=== PATIENT | male | born 1980 | race Caucasian/White ===

== ENCOUNTER 2016-12-08 05:55 | Emergency (ER) | payer MEDICAID ==
[~2016-12-08] VITALS: Ht 175.3 cm; Wt 66.0 kg
[2016-12-08] MEDS ORDERED: ONDANSETRON 2MG/ML, 2ML IVPush ONE (06:00)
[2016-12-08] MEDS ORDERED: THIAMINE 100 MG in SODIUM CHLORIDE 0.9% 50 ML IVPB ONE (06:00)
[2016-12-08] MEDS ORDERED: SODIUM CHLORIDE 0.9% 1,000ML IVBOLUS ONE (06:00)
[2016-12-08] MEDS ORDERED: ONDANSETRON 2MG/ML, 2ML ONE (06:22)
[2016-12-08] MEDS ORDERED: LORazepam 2 MG/ML, 1ML ONE ×2 (06:24→07:52)
[2016-12-08] MEDS: LORazepam 2 MG/ML, 1ML IVPush PRN ×2 (06:31→07:56)
[2016-12-08 06:38] LABS: HEMATOCRIT 49.6 % (39.2-51.8); HEMOGLOBIN 16.8 g/dL (13.7-18.0); WHITE BLOOD COUNT 10.7 x10^3/uL (3.4-10)
[2016-12-08 06:52] LABS: ASPARTATE AMINO TRANSFERASE 127 U/L (15-37); BLOOD UREA NITROGEN 11 mg/dL (7-18)
[2016-12-08 06:53] LABS: IS PT STATUS REG ER OR PRE ER? YES
[2016-12-08 09:18] VITALS: BP 101/57
== END 2016-12-08 09:20 | disposition home or self-care (01) ==
LOC: ED 07:12
DX: F10.239 Alcohol dependence with withdrawal, unspecified (principal); R45.4 Irritability and anger; R45.1 Restlessness and agitation; G40.909 Epilepsy, unspecified, not intractable, without status epilepticus
CPT/HCPCS: 36415; 71010; 76700; 80053; 80307; 83690; 84484; 85025; 93005; 96365; 96366; 96375; 96376; 99285; J2060; J2405; J3411; J7030

== ENCOUNTER 2017-05-07 11:48 | Emergency (ER) | payer MEDICAID ==
[~2017-05-07] VITALS: Ht 172.7 cm; Wt 65.0 kg
[2017-05-07 11:48] VITALS: BP 140/72
[2017-05-07] MEDS ORDERED: LORazepam 2 MG/ML, 1ML ONE (12:15)
[2017-05-07] MEDS ORDERED: MAGNESIUM SULFATE 1 GM, THIAMINE 100 MG, FOLIC ACID 1 MG, MVI ADULT 10 ML in SODIUM CHL... IV ONE (12:30)
[2017-05-07] MEDS ORDERED: LORazepam 2 MG/ML, 1ML IVPush PRN (12:30)
[2017-05-07] MEDS ORDERED: SODIUM CHLORIDE FLUSH 10ML SYR IVF ONE (12:30)
[2017-05-07 12:56] LABS: BASOPHILS # (AUTO) 0.04 x10^3/uL (0-0.1); BASOPHILS % (AUTO) 0 % (0-1); EOSINOPHILS % (AUTO) 0 % (1-7); LYMPHOCYTES # (AUTO) 1.08 x10^3/uL (1-3.4); LYMPHOCYTES % (AUTO) 9 % (22-44); MD NO; MEAN CORPUSCULAR HEMOGLOBIN 32.3 pg (27.5-34.5); MEAN CORPUSCULAR HGB CONC 34.1 g/dL (33.2-36.2); MEAN CORPUSCULAR VOLUME 94.6 fL (81-97); MEAN PLATELET VOLUME 7.6 fL (7.4-10.4); MONOCYTES # (AUTO) 0.39 x10^3/uL (0.2-0.8); MONOCYTES % (AUTO) 3 % (2-9); NEUTROPHILS # (AUTO) 10.53 x10^3/uL (1.8-6.8); NEUTROPHILS % (AUTO) 87 % (42-75); PLATELET COUNT 182 x10^3/uL (130-400); RED CELL DISTRIBUTION WIDTH 13.9 % (9.4-14.8)
[2017-05-07 13:04] LABS: ALANINE AMINOTRANSFERASE 54 U/L (12-78); ALBUMIN 3.5 g/dL (3.4-5.0); ANION GAP 16 mmol/L (5-15); CALCIUM 8.4 mg/dL (8.5-10.1); CHLORIDE 104 mmol/L (98-107); CREATININE 0.84 mg/dL (0.7-1.3)
[2017-05-07 13:07] LABS: ALKALINE PHOSPHATASE 88 U/L (45-117); TOTAL PROTEIN 6.9 g/dL (6.4-8.2)
== END 2017-05-07 15:26 | disposition home or self-care (01) ==
LOC: ED 15:15
DX: F10.239 Alcohol dependence with withdrawal, unspecified (principal); R44.3 Hallucinations, unspecified; G40.909 Epilepsy, unspecified, not intractable, without status epilepticus; Z79.899 Other long term (current) drug therapy
CPT/HCPCS: 36415; 71101; 80053; 80307; 83690; 85025; 96365; 96375; 99285; J2060; J3411; J3475; J7030; G0479

== ENCOUNTER 2018-01-10 20:35 | Emergency (ER) | payer SELFPAY ==
[~2018-01-10] VITALS: Ht 160 cm; Wt 61.1 kg
[2018-01-10] MEDS ORDERED: SODIUM CHLORIDE 0.9% 1,000ML IVBOLUS ONE (21:30)
[2018-01-10] MEDS ORDERED: METOCLOPRAMIDE 5 MG/ML, 2ML IVPush ONE (21:30)
[2018-01-10] MEDS ORDERED: LORazepam 2 MG/ML, 1ML IVPush ONE (21:30)
[2018-01-10] MEDS ORDERED: LORazepam 2 MG/ML, 1ML ONE (21:33)
[2018-01-10] MEDS ORDERED: METOCLOPRAMIDE 5 MG/ML, 2ML ONE (21:33)
[2018-01-10 21:48] LABS: BASOPHILS # (AUTO) 0.08 x10^3/uL (0-0.1); BASOPHILS % (AUTO) 2 % (0-1); EOSINOPHILS # (AUTO) 0.14 x10^3/uL (0-0.4); EOSINOPHILS % (AUTO) 3 % (1-7); LYMPHOCYTES # (AUTO) 1.84 x10^3/uL (1-3.4); LYMPHOCYTES % (AUTO) 37 % (22-44); MD NO; MEAN CORPUSCULAR HEMOGLOBIN 33.3 pg (27.5-34.5); MEAN CORPUSCULAR HGB CONC 33.5 g/dL (33.2-36.2); MEAN CORPUSCULAR VOLUME 99.2 fL (81-97); MEAN PLATELET VOLUME 7.6 fL (7.4-10.4); MONOCYTES # (AUTO) 0.53 x10^3/uL (0.2-0.8); MONOCYTES % (AUTO) 11 % (2-9); NEUTROPHILS # (AUTO) 2.35 x10^3/uL (1.8-6.8); NEUTROPHILS % (AUTO) 48 % (42-75); PLATELET COUNT 161 x10^3/uL (130-400); RED CELL DISTRIBUTION WIDTH 14.5 % (9.4-14.8)
[2018-01-10 21:56] LABS: ALBUMIN 4.4 g/dL (3.4-5.0); ANION GAP 7 mmol/L (5-15); CALCIUM 8.8 mg/dL (8.5-10.1); CHLORIDE 109 mmol/L (98-107)
[2018-01-10 21:59] LABS: ALANINE AMINOTRANSFERASE 84 U/L (12-78); ALKALINE PHOSPHATASE 112 U/L (45-117); BILIRUBIN,TOTAL 0.7 mg/dL (0.2-1.0); CREATININE 0.78 mg/dL (0.7-1.3); TOTAL PROTEIN 8.3 g/dL (6.4-8.2)
[2018-01-10 22:52] VITALS: BP 110/67
== END 2018-01-10 23:23 | disposition home or self-care (01) ==
LOC: ED 21:57
DX: F10.120 Alcohol abuse with intoxication, uncomplicated (principal); F41.9 Anxiety disorder, unspecified; R11.2 Nausea with vomiting, unspecified
CPT/HCPCS: 36415; 80053; 80307; 83690; 85025; 96361; 96374; 96375; 99284; J2060; J2765; J7030

== ENCOUNTER 2019-03-23 23:32 | Inpatient (IN) | payer MEDICAID ==
[~2019-03-23] VITALS: Ht 175.3 cm; Wt 61.2 kg
[2019-03-23] MEDS ORDERED: ONDANSETRON 2MG/ML, 2ML ONE (23:47)
[2019-03-23] MEDS ORDERED: LORazepam 2 MG/ML, 1ML ONE (23:47)
[2019-03-23] MEDS: LORazepam 2 MG/ML, 1ML IVPush PRN (23:53)
[2019-03-24] MEDS ORDERED: MAGNESIUM SULFATE 1 GM, THIAMINE 100 MG, FOLIC ACID 1 MG, MVI ADULT 10 ML in SODIUM CHL... IV ONE
[2019-03-24] MEDS ORDERED: ONDANSETRON 2MG/ML, 2ML IVPush ONE
[2019-03-24] MEDS ORDERED: SODIUM CHLORIDE FLUSH 10ML SYR IVF ONE
--- NOTE | 2019-03-24 00:03 | NUR ---
Pt presents to ed c/o etoh w/d. States last drink yesterday and went "on a 3 month workman" of drinking 30 beers a day. States last d/t resulted in visual hallucinations of seeing bugs and then having sz. Pt presents in moderate-severe anxiety and pacing the room. Pt dry heaving into emesis bag and states has a mild stapleton. Pt extremely tremulous and has to be told a command multiple times to oblige. All monitoring applied and iv initiated per pa verbal order. Ativan and zofran given w/ immediate results of pt tremors calming and stating "i am feeling the tiniest bit better." 2nd dose of 1 mg ativan to be given per jun. Pt back from ct and all monitoring remains intact.
[2019-03-24] MEDS: LORazepam 2 MG/ML, 1ML IVPush PRN (00:05)
[2019-03-24 00:12] LABS: BASOPHILS # (AUTO) 0.01 x10^3/uL (0-0.1); BASOPHILS % (AUTO) 0 % (0-1); EOSINOPHILS # (AUTO) 0.01 x10^3/uL (0-0.4); EOSINOPHILS % (AUTO) 0 % (1-7); LYMPHOCYTES # (AUTO) 1.13 x10^3/uL (1-3.4); LYMPHOCYTES % (AUTO) 10 % (22-44); MD NO; MEAN CORPUSCULAR HEMOGLOBIN 33.1 pg (27.5-34.5); MEAN CORPUSCULAR HGB CONC 33.6 g/dL (33.2-36.2); MEAN CORPUSCULAR VOLUME 98.8 fL (81-97); MEAN PLATELET VOLUME 7.9 fL (7.4-10.4); MONOCYTES # (AUTO) 0.58 x10^3/uL (0.2-0.8); MONOCYTES % (AUTO) 5 % (2-9); NEUTROPHILS # (AUTO) 9.17 x10^3/uL (1.8-6.8); NEUTROPHILS % (AUTO) 84 % (42-75); PLATELET COUNT 162 x10^3/uL (130-400); RED BLOOD COUNT 4.81 x10^6/uL (4.38-5.82); RED CELL DISTRIBUTION WIDTH 14.2 % (9.4-14.8)
[2019-03-24 00:15] LABS: ALBUMIN 4.4 g/dL (3.4-5.0); ANION GAP 11 mmol/L (5-15); CALCIUM 9.1 mg/dL (8.5-10.1); CHLORIDE 103 mmol/L (98-107)
[2019-03-24 00:18] LABS: ALANINE AMINOTRANSFERASE 50 U/L (12-78); ALKALINE PHOSPHATASE 89 U/L (45-117); BILIRUBIN,TOTAL 1.2 mg/dL (0.2-1.0); CREATININE 0.72 mg/dL (0.7-1.3); TOTAL PROTEIN 8.1 g/dL (6.4-8.2)
--- NOTE | 2019-03-24 00:52 | NUR ---
made aware that banana bag has 1gm of mag in it; an additional 1gm of mag ordered; ok to give in conjunction per .
[2019-03-24] MEDS ORDERED: ONDANSETRON 2MG/ML, 2ML IVPush PRN (01:00)
[2019-03-24] MEDS ORDERED: MAGNESIUM SULFATE 1 GM in SODIUM CHLORIDE 0.9% 50 ML IV ONE (01:00)
[2019-03-24] MEDS ORDERED: LORazepam 2 MG/ML, 1ML IV PRN ×3 (01:00)
[2019-03-24] MEDS ORDERED: FOLIC ACID 1 MG TABLET PO ONE (01:00)
--- NOTE | 2019-03-24 01:08 | NUR ---
tp: [facility] refused pt transfer for ins at [facility]. awaiting call back from [facility], [place] on house sup phone.
[2019-03-24 01:13] LABS: INTERNATIONAL NORMALIZED RATIO 0.97 (0.93-1.1); PROTHROMBIN TIME 10.2 Seconds (9.6-11.5)
--- NOTE | 2019-03-24 01:37 | NUR ---
TP:CALLED AGAIN TO [facility], SPOKE WT HOUSE SUP AL WHOM DECLINED TRANSFER. PSN FAXED.
[2019-03-24] MEDS: LORazepam 2 MG/ML, 1ML IV PRN ×4 (03:00→20:21)
[2019-03-24 07:26] VITALS: BP 137/79
[2019-03-24] MEDS ORDERED: MAGNESIUM SULFATE PMX 2GM/50ML 50 ML IV ONE (09:00)
[2019-03-24] MEDS: ENOXAPARIN 40 MG/0.4 ML SQ SCH (11:31)
[2019-03-24] MEDS: THIAMINE 100MG TABLET PO SCH (11:32)
[2019-03-24] MEDS: FOLIC ACID 1 MG TABLET PO SCH (11:32)
[2019-03-24] MEDS: MULTIVITAMIN 1 TABLET PO SCH (11:32)
[2019-03-24 13:19] VITALS: BP 113/57
[2019-03-24 19:28] VITALS: BP 102/64
[2019-03-24 21:17] LABS: AMPHETAMINE SCREEN, URINE Negative (Negative); BARBITURATE SCREEN, URINE Negative (Negative); BENZODIAZEPINE SCREEN, URINE Negative (Negative); CANNABINOID SCREEN, URINE Positive (Negative); COCAINE SCREEN, URINE Negative (Negative); METHADONE SCREEN, URINE Negative (Negative); OPIATE SCREEN, URINE Negative (Negative)
[2019-03-25 02:59] VITALS: BP 111/72
[2019-03-25] MEDS: LORazepam 2 MG/ML, 1ML IV PRN (03:42)
[2019-03-25 05:34] LABS: CHLORIDE 104 mmol/L (98-107)
[2019-03-25 05:38] LABS: BASOPHILS # (AUTO) 0.03 x10^3/uL (0-0.1); BASOPHILS % (AUTO) 0 % (0-1); EOSINOPHILS # (AUTO) 0.13 x10^3/uL (0-0.4); EOSINOPHILS % (AUTO) 2 % (1-7); LYMPHOCYTES # (AUTO) 1.74 x10^3/uL (1-3.4); LYMPHOCYTES % (AUTO) 28 % (22-44); MD NO; MEAN CORPUSCULAR HEMOGLOBIN 33.1 pg (27.5-34.5); MEAN CORPUSCULAR HGB CONC 33.8 g/dL (33.2-36.2); MEAN CORPUSCULAR VOLUME 98.1 fL (81-97); MONOCYTES # (AUTO) 0.57 x10^3/uL (0.2-0.8); MONOCYTES % (AUTO) 9 % (2-9); NEUTROPHILS # (AUTO) 3.71 x10^3/uL (1.8-6.8); NEUTROPHILS % (AUTO) 60 % (42-75); PLATELET COUNT 145 x10^3/uL (130-400); RED BLOOD COUNT 4.73 x10^6/uL (4.38-5.82)
[2019-03-25 05:40] LABS: ALANINE AMINOTRANSFERASE 52 U/L (12-78); ALKALINE PHOSPHATASE 88 U/L (45-117); ANION GAP 5 mmol/L (5-15); BILIRUBIN,TOTAL 1.3 mg/dL (0.2-1.0); CALCIUM 8.9 mg/dL (8.5-10.1); CREATININE 0.69 mg/dL (0.7-1.3); TOTAL PROTEIN 7.6 g/dL (6.4-8.2)
[2019-03-25] MEDS: FOLIC ACID 1 MG TABLET PO SCH (08:37)
[2019-03-25] MEDS: MULTIVITAMIN 1 TABLET PO SCH (08:38)
[2019-03-25] MEDS: THIAMINE 100MG TABLET PO SCH (08:38)
[2019-03-25] MEDS: ENOXAPARIN 40 MG/0.4 ML SQ SCH (08:39)
[2019-03-25] MEDS ORDERED: THIAMINE 100 MG in DEXTROSE 5% 50 ML IVPB SCH (09:00)
[2019-03-25 09:18] VITALS: BP 124/52
[2019-03-25 12:50] VITALS: BP 130/80
[2019-03-25 19:04] VITALS: BP 110/70
[2019-03-26] MEDS ORDERED: MELATONIN 5 MG TABLET PO ONE (00:30)
[2019-03-26] MEDS ORDERED: NICOTINE 21 MG/24 HR PATCH.TD24 TD ONE (00:30)
[2019-03-26 01:10] VITALS: BP 132/91
[2019-03-26] MEDS ORDERED: THIA100T67 PO (08:18)
[2019-03-26] MEDS ORDERED: MULT1TAB60 PO (08:18)
[2019-03-26] MEDS ORDERED: FOLI-17 PO (08:18)
[2019-03-26] MEDS: FOLIC ACID 1 MG TABLET PO SCH (08:39)
[2019-03-26] MEDS: THIAMINE 100MG TABLET PO SCH (08:39)
[2019-03-26] MEDS: MULTIVITAMIN 1 TABLET PO SCH (08:39)
[2019-03-26] MEDS: ENOXAPARIN 40 MG/0.4 ML SQ SCH (08:48)
[2019-03-26] MEDS ORDERED: FLU VACC QS2019-20 36MOS UP/PF 0.5 ML IM-VACC ONE (09:30)
== END 2019-03-26 10:14 | disposition home or self-care (01) | DRG 897 ==
LOC: ED 03-24 00:48 → EDIP 03-24 01:17 → 4WST 03-24 01:50 → DCLOUNGE 03-26 08:55
PROVIDERS: ADMIT Internal Medicine; ATTEND Internal Medicine
DX: F10.231 Alcohol dependence with withdrawal delirium (principal); D72.829 Elevated white blood cell count, unspecified; E83.42 Hypomagnesemia; F12.90 Cannabis use, unspecified, uncomplicated; F17.210 Nicotine dependence, cigarettes, uncomplicated; F31.9 Bipolar disorder, unspecified; G40.909 Epilepsy, unspecified, not intractable, without status epilepticus; Y90.2 Blood alcohol level of 40-59 mg/100 ml; Z87.19 Personal history of other diseases of the digestive system
CPT/HCPCS: 36415; 70450; 80053; 80307; 82140; 83690; 83735; 84100; 85025; 85610; 90686; 93005; 96374; G0378; J1650; J2405; J3411; J3475; J2060; J7030

== ENCOUNTER 2019-05-27 21:29 | Emergency (ER) | payer SELFPAY ==
[~2019-05-27] VITALS: Ht 172.7 cm; Wt 63.1 kg
[~2019-05-27 21:29] MED LIST: FOLI-17 PO; MULT1TAB60 PO; THIA100T67 PO
--- NOTE | 2019-05-27 21:39 | NUR ---
UNABLE TO OBTAIN BP IN TRIAGE DUE TO PT MOVEMENT. TRIED X 3
--- NOTE | 2019-05-27 21:52 | NUR ---
PT REPORTS "I WANNA QUIT DRINKING", DENIES OTHER MEDICAL C/O AT THIS TIME. PT REPORTS LAST DRINK WAS 2 BEERS RIGHT BEFORE COMING TO ED. PT REPORTS DRINKING 1/5TH OF VODKA PER DAY. ALL MONITORS IN PLACE, CALL LIGHT WITHIN REACH, ALL SAFETY MEASURES IN PLACE.
--- NOTE | 2019-05-27 21:53 | NUR ---
LAB IN ROOM AT THIS TIME.
[2019-05-27] MEDS ORDERED: LORazepam 2 MG/ML, 1ML IVPush ONE ×2 (22:00→23:30)
[2019-05-27] MEDS ORDERED: ONDANSETRON 2MG/ML, 2ML IVPush ONE (22:00)
[2019-05-27] MEDS ORDERED: SODIUM CHLORIDE 0.9% 1,000ML IVBOLUS ONE (22:00)
[2019-05-27] MEDS ORDERED: ONDANSETRON 2MG/ML, 2ML ONE (22:06)
[2019-05-27] MEDS ORDERED: LORazepam 2 MG/ML, 1ML ONE ×2 (22:06→23:16)
[2019-05-27 22:35] LABS: BASOPHILS # (AUTO) 0.01 x10^3/uL (0-0.1); BASOPHILS % (AUTO) 0 % (0-1); EOSINOPHILS # (AUTO) 0.22 x10^3/uL (0-0.4); EOSINOPHILS % (AUTO) 3 % (1-7); LYMPHOCYTES # (AUTO) 2.13 x10^3/uL (1-3.4); LYMPHOCYTES % (AUTO) 28 % (22-44); MD NO; MEAN CORPUSCULAR HEMOGLOBIN 32.9 pg (27.5-34.5); MEAN CORPUSCULAR HGB CONC 33.5 g/dL (33.2-36.2); MEAN CORPUSCULAR VOLUME 98.2 fL (81-97); MEAN PLATELET VOLUME 7.6 fL (7.4-10.4); MONOCYTES # (AUTO) 0.61 x10^3/uL (0.2-0.8); MONOCYTES % (AUTO) 8 % (2-9); NEUTROPHILS # (AUTO) 4.79 x10^3/uL (1.8-6.8); NEUTROPHILS % (AUTO) 62 % (42-75); PLATELET COUNT 196 x10^3/uL (130-400); RED BLOOD COUNT 4.89 x10^6/uL (4.38-5.82); RED CELL DISTRIBUTION WIDTH 16.2 % (9.4-14.8)
[2019-05-27 22:43] LABS: ALANINE AMINOTRANSFERASE 22 U/L (12-78); ALBUMIN 4.3 g/dL (3.4-5.0); ANION GAP 8 mmol/L (5-15); CALCIUM 8.7 mg/dL (8.5-10.1); CHLORIDE 107 mmol/L (98-107)
[2019-05-27 22:47] LABS: ALKALINE PHOSPHATASE 90 U/L (45-117); BILIRUBIN,TOTAL 0.6 mg/dL (0.2-1.0); TOTAL PROTEIN 8.1 g/dL (6.4-8.2); TROPONIN I < 0.015 ng/mL (0.000-0.045)
[2019-05-27 23:19] VITALS: BP 142/50
== END 2019-05-27 23:56 ==
LOC: ED 23:30
DX: K29.20 Alcoholic gastritis without bleeding (principal); F10.239 Alcohol dependence with withdrawal, unspecified; F10.229 Alcohol dependence with intoxication, unspecified; F17.200 Nicotine dependence, unspecified, uncomplicated; R07.89 Other chest pain; Y90.9 Presence of alcohol in blood, level not specified
CPT/HCPCS: 36415; 71045; 80053; 80307; 83690; 84484; 85025; 96374; 96375; 96376; 99284; J2060; J2405; J7030; 96361

== ENCOUNTER 2019-07-01 22:51 | Emergency (ER) | payer SELFPAY ==
[~2019-07-01] VITALS: Ht 172.7 cm; Wt 61.8 kg
[2019-07-01] MEDS ORDERED: ONDANSETRON 2MG/ML, 2ML ONE (23:15)
[2019-07-01] MEDS ORDERED: LORazepam 2 MG/ML, 1ML ONE (23:16)
[2019-07-01] MEDS: LORazepam 2 MG/ML, 1ML IVPush PRN (23:22)
[2019-07-01 23:30] LABS: BASOPHILS # (AUTO) 0.01 x10^3/uL (0-0.1); BASOPHILS % (AUTO) 0 % (0-1); EOSINOPHILS # (AUTO) 0.15 x10^3/uL (0-0.4); EOSINOPHILS % (AUTO) 1 % (1-7); LYMPHOCYTES # (AUTO) 0.91 x10^3/uL (1-3.4); LYMPHOCYTES % (AUTO) 5 % (22-44); MD NO; MEAN CORPUSCULAR HEMOGLOBIN 32.9 pg (27.5-34.5); MEAN CORPUSCULAR HGB CONC 33.9 g/dL (33.2-36.2); MEAN CORPUSCULAR VOLUME 96.9 fL (81-97); MEAN PLATELET VOLUME 8.1 fL (7.4-10.4); MONOCYTES # (AUTO) 0.77 x10^3/uL (0.2-0.8); MONOCYTES % (AUTO) 4 % (2-9); NEUTROPHILS # (AUTO) 15.65 x10^3/uL (1.8-6.8); NEUTROPHILS % (AUTO) 90 % (42-75); PLATELET COUNT 137 x10^3/uL (130-400); RED BLOOD COUNT 4.92 x10^6/uL (4.38-5.82); RED CELL DISTRIBUTION WIDTH 15.7 % (9.4-14.8)
[2019-07-01] MEDS ORDERED: ONDANSETRON 2MG/ML, 2ML IVPush ONE (23:30)
[2019-07-01] MEDS ORDERED: MAGNESIUM SULFATE 1 GM, THIAMINE 100 MG, FOLIC ACID 1 MG, MVI ADULT 10 ML in SODIUM CHL... IV ONE (23:30)
[2019-07-01] MEDS ORDERED: SODIUM CHLORIDE 0.9% 1,000ML IVBOLUS ONE (23:30)
[2019-07-01] MEDS ORDERED: SODIUM CHLORIDE FLUSH 10ML SYR IVF ONE (23:30)
--- NOTE | 2019-07-01 23:30 | NUR ---
Patient presents to ER with ETOH withdrawal. Patient's last drink was this morning at 0800. Patient states he has been on a "workman" for the last four months drinking Noris and shots of other liquor. Patient states he has done this before and he'd like to get help to quit. Patient is nauseous and is actively vomiting. Patient states he hears noises that aren't there and sees things that aren't there such as willis on his body. Patient has cutting willis on his wrists. Patient states that he has thoughts of killing himself often. Today he does not have thoughts but when he does, which has been within the last month, he states he wants to drive his car into the center divider. Patient states he has also wanted to do this in the past. Patient has tremors. Skin pink, warm, and clammy. Respirations even and unlabored. Patient moved to a secured room. Belongings bagged and placed in locked cabinet. Sitter outside room. Report given to SOPHIA Rodriguez.
[2019-07-01 23:40] LABS: ALANINE AMINOTRANSFERASE 92 U/L (12-78); ALBUMIN 4.5 g/dL (3.4-5.0); ANION GAP 21 mmol/L (5-15); CALCIUM 9.1 mg/dL (8.5-10.1); CHLORIDE 106 mmol/L (98-107)
[2019-07-01 23:43] LABS: ALKALINE PHOSPHATASE 104 U/L (45-117); BILIRUBIN,TOTAL 0.8 mg/dL (0.2-1.0); CREATININE 0.84 mg/dL (0.7-1.3); TOTAL PROTEIN 8.3 g/dL (6.4-8.2)
[2019-07-01 23:57] LABS: SALICYLATE LEVEL 2.6 mg/dL (2.8-20.0)
[2019-07-02] MEDS ORDERED: LORazepam 2 MG/ML, 1ML ONE (00:24)
[2019-07-02] MEDS: LORazepam 2 MG/ML, 1ML IVPush PRN (00:26)
--- NOTE | 2019-07-02 00:30 | NUR ---
REPORT RECEIVED FROM SOPHIA SARABIA. PLAN OF CARE DISCUSSED
[2019-07-02] MEDS ORDERED: DEXTROSE 50%, 50ML SYRINGE ONE (00:37)
--- NOTE | 2019-07-02 00:40 | NUR ---
D50 GIVEN FOR LOW BLOOD SUGAR Addendum: 07/02/19 at 0041 by HARJIT BLOOD SUGAR 68
[2019-07-02 00:51] LABS: AMPHETAMINE SCREEN, URINE Negative (Negative); BARBITURATE SCREEN, URINE Negative (Negative); BENZODIAZEPINE SCREEN, URINE Negative (Negative); CANNABINOID SCREEN, URINE Positive (Negative); COCAINE SCREEN, URINE Negative (Negative); METHADONE SCREEN, URINE Negative (Negative); OPIATE SCREEN, URINE Negative (Negative)
[2019-07-02] MEDS ORDERED: DEXTROSE 50%, 50ML SYRINGE IVPush ONE (01:00)
[2019-07-02] MEDS ORDERED: SODIUM CHLORIDE 0.9% 1,000ML IVBOLUS ONE (02:00)
--- NOTE | 2019-07-02 02:45 | NUR ---
TELEPSYCH [id number] SET UP IN ROOM
--- NOTE | 2019-07-02 02:56 | NUR ---
REPORT GIVEN TO TELEPSYCH
[2019-07-02] MEDS ORDERED: THIAMINE 100MG TABLET ONE (03:25)
[2019-07-02] MEDS ORDERED: CHLORDIAZEPOXIDE 10 MG CAPSULE ONE (03:25)
[2019-07-02] MEDS ORDERED: THIAMINE 100MG TABLET PO ONE (03:30)
[2019-07-02] MEDS ORDERED: CHLORDIAZEPOXIDE 10 MG CAPSULE PO PRN (03:30)
[2019-07-02 03:53] VITALS: BP 117/67
== END 2019-07-02 03:56 | disposition home or self-care (01) ==
LOC: ED 07-02 01:59
DX: F10.220 Alcohol dependence with intoxication, uncomplicated (principal); R00.0 Tachycardia, unspecified; Z72.9 Problem related to lifestyle, unspecified; G40.909 Epilepsy, unspecified, not intractable, without status epilepticus; F31.9 Bipolar disorder, unspecified; F17.210 Nicotine dependence, cigarettes, uncomplicated; Y90.9 Presence of alcohol in blood, level not specified
CPT/HCPCS: 36415; 80053; 80307; 82962; 83690; 85025; 96365; 96366; 96375; 96376; 99285; J2060; J2405; J3411; J3475; J7030